=== PATIENT | female | born 1960 | race Caucasian/White ===

== ENCOUNTER 2019-07-19 03:31 | Emergency (ER) | payer BC, OTHER ==
[2019-07-19 04:38] LABS: ABSOLUTE EOSINOPHILS # (AUTO) 0.1 10^3/uL (0.0-0.6); ABSOLUTE LYMPHOCYTES (AUTO) 0.7 10^3/uL (0.5-4.7); ABSOLUTE MONOCYTES (AUTO) 0.5 10^3/uL (0.1-1.4); ABSOLUTE NEUT (AUTO) 7.1 10^3/uL (1.7-8.2); BASOPHILS % (AUTO) 0.3 % (0-2); EOSINOPHILS % (AUTO) 0.9 % (0-6); HEMATOCRIT 27.1 % (36.0-47.0); LYMPHOCYTES % (AUTO) 8.4 % (13-45); MEAN CORPUSCULAR HEMOGLOBIN 30.2 pg (27.0-33.4); MEAN CORPUSCULAR HGB CONC 33.2 g/dL (32.0-36.0); MEAN CORPUSCULAR VOLUME 91 fl (80-97); MONOCYTES % (AUTO) 6.5 % (3-13); PLATELET COUNT 243 10^3/uL (150-450); RED BLOOD COUNT 2.98 10^6/uL (3.72-5.28); RED CELL DISTRIBUTION WIDTH 21.3 % (11.5-14.0); SEGMENTED NEUTROPHILS % (AUTO) 83.9 % (42-78); TOTAL CELLS COUNTED % (AUTO) 100 %; WHITE BLOOD COUNT 8.4 10^3/uL (4.0-10.5)
[2019-07-19] MEDS ORDERED: NORMAL SALINE 1000 ML 1,000 ML IV ONE ×2 (04:41→07:46)
[2019-07-19] MEDS ORDERED: ONDANSETRON HCL INJ/PF 4 MG/2 ML SDV IV ONE (04:42)
[2019-07-19 05:01] LABS: ALBUMIN 3.1 g/dL (3.5-5.0); ALKALINE PHOSPHATASE 79 U/L (38-126); ANION GAP 10 (5-19); ASPARTATE AMINO TRANSFERASE 19 U/L (14-36); BILIRUBIN,DIRECT 0.1 mg/dL (0.0-0.4); BILIRUBIN,TOTAL 0.4 mg/dL (0.2-1.3); BLOOD UREA NITROGEN 9 mg/dL (7-20); CARBON DIOXIDE 18 mmol/L (22-30); CHLORIDE 111 mmol/L (98-107); GLUCOSE 189 mg/dL (75-110); POTASSIUM 4.4 mmol/L (3.6-5.0); TOTAL PROTEIN 6.1 g/dL (6.3-8.2)
--- NOTE | 2019-07-19 05:23 | ER Document Report ---
ED GI Bleed / Rectal Pain - General Mode of Arrival: Ambulatory Information source: Patient TRAVEL OUTSIDE OF THE [place] IN LAST 30 DAYS: No - Related Data Home Medications: Humira. Osteoporosis med. Vitamin B. Multivitamin. Niacin <ERNESTO ROSADO - Last Filed: 07/19/19 07:01> <AUTUMN ALCARAZ IV - Last Filed: 07/19/19 15:50> - General Chief Complaint: Rectal Bleeding Stated Complaint: FALL/HEAD INJURY/RECTAL BLEED Time Seen by Provider: 07/19/19 04:34 Primary Care Provider: CRYS PHELPS MD [Primary Care Provider] - 07/20/19 Notes: 58-year-old woman presents to the emergency department with a history of Crohn's disease and rectal bleeding. States that she has been using Humira every 2 months for treatment. She has noted increase amount of lower GI bleeding over the past few days and this morning had a syncopal episode while using the bathro om. She complains of generalized weakness and shortness of breath. She apparently passed out in the bathroom hitting her head on the floor, found her and she was brought to the emergency department for further evaluation and treatment. Patient notes that she is a [employer] witness and will not take blood transfusions. (ERNESTO ROSADO) - Related Data Allergies/Adverse Reactions: codeine Allergy (Unknown, Verified 07/16/16 13:54) Unknown reaction Past Medical History - Social History Smoking Status: Never Smoker Chew tobacco use (# tins/day): No Frequency of alcohol use: None Drug Abuse: None Patient has suicidal ideation: No Patient has homicidal ideation: No <ERNESTO ROSADO - Last Filed: 07/19/19 07:01> - Social History Smoking Status: Never Smoker Family History: Reviewed & Not Pertinent <AUTUMN ALCARAZ IV - Last Filed: 07/19/19 15:50> Physical Exam <ERNESTO ROSADO - Last Filed: 07/19/19 07:01> - Vital signs Vitals: Temp Pulse Resp BP Pulse Ox 97.5 F 103 H 20 87/64 L 95 07/19/19 03:37 07/19/19 03:37 07/19/19 03:37 07/19/19 03:37 07/19/19 03:37 - Notes Notes: PHYSICAL EXAMINATION: GENERAL: Pale, mildly distressed female in hypotensive state HEAD: Right posterior lateral occipital swelling, mild tenderness, no hemorrhage EYES: Pupils equal round and reactive to light, extraocular movements intact, sclera anicteric, conjunctiva are normal. ENT: nares patent, oropharynx clear without exudates. Moist mucous membranes. NECK: Normal range of motion, supple without pain or deformity LUNGS: Breath sounds clear to auscultation bilaterally and equal. No wheezes rales or rhonchi. HEART: Regular rate and rhythm without murmurs ABDOMEN: Soft, diffusely tender, normoactive bowel sounds. No guarding, no rebound. No masses appreciated. EXTREMITIES: Normal range of motion, no pitting or edema. No cyanosis. NEUROLOGICAL: No focal neurological deficits. Moves all extremities spontaneously and on command. SKIN: Cold, Dry, normal turgor, no rashes or lesions noted. (ERNESTO ROSADO) Course - Laboratory Result Diagrams: 07/19/19 04:22 07/19/19 04:22 - Diagnostic Test Radiology reviewed: Image reviewed, Reports reviewed <ERNESTO ROSADO - Last Filed: 07/19/19 07:01> - Laboratory Result Diagrams: 07/19/19 04:22 07/19/19 04:22 <AUTUMN ALCARAZ IV - Last Filed: 07/19/19 15:50> - Re-evaluation Re-evalutation: 07/19/19 07:08 Patient endorsed to this MD by Dr. Rosado. Patient is a [employer] and does not want to receive blood products. Patient has received 1 L of normal saline but remains orthostatic and hypotensive. This MD went to the patient's bedside and evaluated the patient and informed her that additional IV fluid resuscitation is recommended prior to discharging the patient home since she has opted not to receive blood products. Patient agrees to additional IV fluids and monitoring. 07/19/19 10:14 Patient is feeling better after second bolus of IV fluid. Patient is able to stand and does not feel unsteady patient states she feels well enough to go home at this time. (AUTUMN ALCARAZ IV) - Vital Signs Vital signs: Temp Pulse Resp BP Pulse Ox 97.5 F 101 H 20 116/53 L 95 07/19/19 03:37 07/19/19 08:42 07/19/19 03:37 07/19/19 10:18 07/19/19 03:37 07/19/19 06:44 I spoke with the hematology oncologist, Dr. Phelps, states that he would like to have iron studies added to the lab work today, patient can be discharged home and follow-up in the office on Saturday given she does not want transfusion of blood. At this time will discharge with return precautions and follow-up recommendations. Verbal discharge instructions given a the bedside and opportunity for questions given. Medication warnings reviewed. Patient is in agreement with this plan and has verbalized understanding of return precautions and the need for primary care follow-up in the next 24-72 hours. (ERNESTO ROSADO) - Laboratory Laboratory results interpreted by me: 07/19/19 07/19/19 07/19/19 04:22 04:22 04:22 RBC 2.98 L Hgb 9.0 L Hct 27.1 L RDW 21.3 H Lymph % (Auto) 8.4 L Seg Neutrophils % 83.9 H Chloride 111 H Carbon Dioxide 18 L Glucose 189 H Calcium 8.0 L TIBC 234 L Total Protein 6.1 L Albumin 3.1 L Urine Blood 07/19/19 08:25 RBC Hgb Hct RDW Lymph % (Auto) Seg Neutrophils % Chloride Carbon Dioxide Glucose Calcium TIBC Total Protein Albumin Urine Blood SMALL H - Diagnostic Test Radiology results interpreted by me: 07/19/19 06:38 CT scan of the head: No acute findings, no hemorrhage, no fracture of the emani varium (ERNESTO ROSADO) Discharge <ERNESTO ROSADO - Last Filed: 07/19/19 07:01> <AUTUMN ALCARAZ IV - Last Filed: 07/19/19 15:50> - Discharge Clinical Impression: Hemorrhagic shock GI bleed Qualifiers: GI bleed type/associated pathology: unspecified gastrointestinal hemorrhage type Qualified Code(s): K92.2 - Gastrointestinal hemorrhage, unspecified Crohn's disease (regional enteritis) Qualifiers: Gastrointestinal tract location: unspecified location Digestive disease complication type: unspecified complication Qualified Code(s): K50.919 - Crohn's disease, unspecified, with unspecified complications Condition: Fair Disposition: HOME, SELF-CARE Additional Instructions: Return to the Emergency Department without delay if any worse. HOME CARE INSTRUCTIONS & INFORMATION: Thank you for choosing us for your medical needs. We hope you're satisfied with the care you received. After you leave, you must properly care for your problem and, at the same time, observe its progress. Any condition can change. Some illnesses can change rapidly over hours or days. If your condition worsens, return to the Emergency Department or see your physician promptly. ABOUT YOUR X-RAYS AND EKG'S: If you had an EKG or X-rays taken, they have been read by the Emergency Physician. The X-rays and EKG's will also be read by a Radiologist or It Senior Analyst within 24 hours. If discrepancies are noted, you will be notified by telephone. Please be certain the ED has a correct telephone number & address where you can be reached. Also, realize that some fractures or abnormalities do not show up on initial X-rays. If your symptoms continue, see your physician. ABOUT YOUR LABORATORY TEST: If you had laboratory tests, the results have been reviewed by the Emergency Physician. Some test results (for example cultures) may not be available for several days. You will be contacted if any test result shows you need additional treatment. Please be certain the ED has a correct telephone number and address where you can be reached. ABOUT YOUR MEDICATIONS: You will receive instructions on how to take your medicine on the prescription label you receive. Additional information may be provided by the Pharmacy. If you have questions afterwards, call the ED for clarification or further instructions. Some prescribed medications may cause drowsiness. Do not perform tasks such as driving a car or operating machinery without consulting your Pharmacist. If you feel you need a refill of pain medication, your condition will need re-evaluation. Please do not call for a refill of any medication. ABOUT YOUR SIGNATURE: Signature of this document acknowledges to followin. Understanding that you received emergency treatment and that you may be released before al medical problems are known or treated. Please be certain the ED has a correct phone number & address where you can be reached. 2. Acknowledgement that you will arrange for follow-up care as recommended. 3. Authorization for the Emergency Physician to provide information to your follow-up Physician in order to maximize your care. AT ANY TIME, IF YOUR SYMPTOMS CHANGE SIGNIFICANTLY OR WORSEN OR YOU DEVELOP NEW SYMPTOMS, RETURN TO THE EMERGENCY DEPARTMENT IMMEDIATELY FOR RE-EVALUATION. OUR GOAL IS TO PROVIDE EXCELLENT MEDICAL CARE! WE HOPE THAT WE HAVE MET YOUR EXPECTATIONS DURING YOUR EMERGENCY DEPARTMENT VISIT AND THAT YOU FEEL YOU HAVE RECEIVED EXCELLENT CARE! Referrals: CRYS PHELPS MD [Primary Care Provider] - 07/20/19
--- NOTE | 2019-07-19 05:53 | RADIOLOGY REPORT (SQ) ---
CT head without contrast on 07/19/2019 at 5:08 AM CLINICAL INDICATION: Head injury, per protocol for mechanism of injury TECHNIQUE: Multiple axial images are obtained throughout the head without the administration of contrast. This exam was performed according to our departmental dose-optimization program, which includes automated exposure control, adjustment of the mA and/or kV according to patient size and/or use of iterative reconstruction technique. Total DLP is 937.36 mGy*cm. COMPARISON: None FINDINGS: There is no hydrocephalus. There is minimal low-density in the periventricular white matter consistent with minimal chronic small vessel ischemic changes. 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 There is no CT evidence of acute infarct. There is no hemorrhage. There are no abnormal extra-axial fluid collections. There is no mass, mass effect or midline shift. No bony abnormality is noted. IMPRESSION: Chronic findings as above with no acute intracranial abnormality.
[2019-07-19 07:00] LABS: ABSOLUTE RETICS # 0.063 10^6/uL (0.028-0.122); RETICULOCYTE COUNT (AUTO) 2.13 % (0.66-2.85)
[2019-07-19 07:06] LABS: IRON(TIBC) 37.7 ug/dL (37-170)
[2019-07-19 08:12] LABS: FOLATE > 20.00 ng/mL (>2.76)
[2019-07-19 08:43] LABS: APPEARANCE,URINE SLIGHTLY-CLOUDY; BILIRUBIN,URINE NEGATIVE (NEGATIVE); COLOR,URINE YELLOW; GLUCOSE, URINE NEGATIVE (NEGATIVE); KETONES,URINE NEGATIVE (NEGATIVE); LEUKOCYTE ESTERASE,URINE NEGATIVE (NEGATIVE); NITRITE,URINE NEGATIVE (NEGATIVE); PROTEIN,URINE NEGATIVE (NEGATIVE); URINE SPECIFIC GRAVITY 1.017; UROBILINOGEN,URINE NEGATIVE mg/dL (<2.0)
[2019-07-19 10:26] VITALS: BP 116/53
== END 2019-07-19 10:26 | disposition home or self-care (01) ==
LOC: ER 03:31
DX: K50.911 Crohn's disease, unspecified, with rectal bleeding (principal); Z79.899 Other long term (current) drug therapy; R57.8 Other shock; R55 Syncope and collapse; R22.0 Localized swelling, mass and lump, head; W19.XXXA Unspecified fall, initial encounter; Y93.89 Activity, other specified; R10.817 Generalized abdominal tenderness; R53.1 Weakness; R06.02 Shortness of breath; Z88.5 Allergy status to narcotic agent; M81.0 Age-related osteoporosis without current pathological fracture
CPT/HCPCS: 36415; 82607; 82728; 82746; 83540; 83550; 83690; 85025; 85045; 80053; 81001; 70450; J2405; J7030; 96361; 96374; 99284

== ENCOUNTER 2019-07-23 07:56 | Outpatient (CLI) | payer BC ==
[2019-07-23] MEDS ORDERED: FERRIC CARBOXYMALTOSE 750 MG in NORMAL SALINE 250 ML IV PRN (08:00)
[2019-07-23] MEDS ORDERED: NORMAL SALINE 250 ML IV PRN (08:00)
[2019-07-23 08:29] VITALS: BP 147/71
== END 2019-07-23 10:15 | disposition home or self-care (01) ==
LOC: II 07:56 → 5TH 08:00 → II 10:15
PROVIDERS: ATTEND Internal Medicine
PROC: 3E033GC Introduction of Other Therapeutic Substance into Peripheral Vein, Percutaneous Approach (ICD-10-PCS; principal; 2019-07-23)
DX: D50.8 Other iron deficiency anemias (principal); K90.89 Other intestinal malabsorption
CPT/HCPCS: 96365; J7050; J1439; 96374

== ENCOUNTER 2019-07-31 07:32 | Outpatient (CLI) | payer BC ==
[2019-07-31 07:41] VITALS: BP 112/61
[2019-07-31] MEDS ORDERED: NORMAL SALINE 250 ML IV PRN (08:00)
[2019-07-31] MEDS ORDERED: FERRIC CARBOXYMALTOSE 750 MG in NORMAL SALINE 250 ML IV PRN (08:00)
== END 2019-07-31 08:45 | disposition home or self-care (01) ==
LOC: II 07:32 → 5TH 07:35 → II 08:45
PROVIDERS: ATTEND Internal Medicine
DX: D50.8 Other iron deficiency anemias (principal); K90.89 Other intestinal malabsorption
CPT/HCPCS: 96374; J7050; J1439; 96365